=== PATIENT | female | born 1995 | race American Indian/Alaskan Native ===

== ENCOUNTER 2017-09-21 19:26 | Emergency (ER) | payer SELFPAY ==
[2017-09-21 19:36] VITALS: TEMP 97.8; O2SAT 100
[2017-09-21] MEDS ORDERED: Sodium Chloride 0.9% 500 ML IV STA (20:10)
[2017-09-21 20:26] LABS: BASO # 0.02 K/mm3 (0.0-2.0); BASO % 0.3 % (0.0-3.0); EOS # 0.1 (0.0-0.7); EOS % 1.5 % (1.5-5.0); GRAN # 3.34 (1.4-6.5); GRAN % 43.1 % (50.0-68.0); HEMATOCRIT 35.7 % (36.0-48.0); LYMPH # 3.7 (1.2-3.4); LYMPH % 47.7 % (22.0-35.0); MEAN CELL VOLUME 84.8 fl (80.0-105.0); MEAN CORPUSCULAR HEMOGLOBIN 28.7 pg (25.0-35.0); MEAN CORPUSCULAR HGB CONC 33.9 g/dl (31.0-37.0); MEAN PLATELET VOLUME 9.1 fl (7.0-11.0); MONO # 0.6 (0.1-0.6); MONO % 7.4 % (1.0-6.0); RED CELL DISTRIBUTION WIDTH 12.9 % (11.5-14.5); WHITE BLOOD COUNT 7.8 10^3/ul (4.5-11.0)
[2017-09-21 20:28] LABS: URINE BILIRUBIN NEGATIVE (NEGATIVE); URINE BLOOD LARGE (NEGATIVE); URINE GLUCOSE (UA) NEGATIVE (NEGATIVE); URINE KETONE NEGATIVE (NEGATIVE); URINE LEUKOCYTE ESTERASE NEGATIVE Leu/uL (NEGATIVE); URINE PROTEIN 30 mg/dL (<30 mg/dL); URINE UROBILINOGEN 0.2 E.U./dL (<1 E.U./dL)
[2017-09-21 20:30] LABS: URINE APPEARANCE CLEAR (CLEAR); URINE COLOR YELLOW (YELLOW)
[2017-09-21 20:31] LABS: URINE BACTERIA TRACE (NEG); URINE RBC 20 - 25 /hpf (0-2); URINE WBC NEGATIVE /hpf (0-6)
[2017-09-21 20:34] LABS: ALB/GLOB RATIO 1.3 (1.1-1.8); ALKALINE PHOSPHATASE 95 U/L (38-126); ALT/SGPT 28 U/L (7-56); AST/SGOT 32 U/L (14-36); BILIRUBIN,TOTAL 0.3 mg/dL (0.2-1.3); BLOOD UREA NITROGEN 13 mg/dL (7-21); CALCIUM 9.3 mg/dL (8.4-10.5); CARBON DIOXIDE 27 mmol/L (21-33); CHLORIDE 106 mmol/L (98-107); GFR AFRICAN-AMERICAN > 60; GLUCOSE,RANDOM 102 mg/dL (70-110); POTASSIUM 3.9 mmol/L (3.6-5.0); SODIUM 140 mmol/L (132-148); TOTAL PROTEIN 7.5 g/dL (5.8-8.3)
--- NOTE | 2017-09-21 20:43 | ED PDOC ---
Arrival/HPI - General Chief Complaint: Female Genitourinary Time Seen by Provider: 09/21/17 19:31 Historian: Patient - History of Present Illness Narrative History of Present Illness (Text): 09/21/17 20:40 22 yo F presents to the ER reports 1 day history of vaginal bleeding, with crampy lower abdominal pain. Reports that she had a +HPT 6 days ago. Otherwise: (-) N/V, (-) fever, (-) urinary symptoms, (-) prior salpingitis, (-) prior ectopic . Has (-) care and (-) prior OB ultrasound. 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 Para 0 AB 1 LNMP Aug 23 Past Medical History - Provider Review Nursing Documentation Reviewed: Yes - Cardiac Hx Cardiac Disorders: No - Pulmonary Hx Respiratory Disorders: No - Neurological Hx Neurological Disorder: Yes Hx Migraine: Yes - HEENT Hx HEENT Disorder: No - Renal Hx Renal Disorder: No - Endocrine/Metabolic Hx Endocrine Disorders: No - Hematological/Oncological Hx Blood Disorders: No - Integumentary Hx Dermatological Disorder: No - Musculoskeletal/Rheumatological Hx Musculoskeletal Disorders: No - Gastrointestinal Hx Gastrointestinal Disorders: No - Genitourinary/Gynecological Hx Genitourinary Disorders: No - Psychiatric Hx Psychophysiologic Disorder: No Hx Substance Use: Yes (occasional marijuana) Family/Social History - Physician Review Nursing Documentation Reviewed: Yes Family/Social History: Unknown Family HX Smoking Status: Never Smoked Hx Alcohol Use: No Hx Substance Use: Yes (occasional marijuana) Allergies/Home Meds Allergies/Adverse Reactions: Allergies raspberry Allergy (Verified 09/21/17 19:32) RASH shellfish derived Allergy (Verified 09/21/17 19:32) SWELLING Home Medications: Home Meds Medication Instructions Recorded Confirmed No Known Home Med 09/21/17 09/21/17 Review of Systems - Review of Systems Constitutional: Normal. absent: Fatigue, Weight Change, Fevers Respiratory: Normal. absent: SOB, Cough, Sputum Cardiovascular: Normal. absent: Chest Pain, Palpitations, Edema Gastrointestinal: Normal, Abdominal Pain. absent: Constipation, Diarrhea, Vomiting Genitourinary Female: Normal, Vaginal Bleeding. absent: Dysuria, Frequency, Hematuria Musculoskeletal: Normal. absent: Arthralgias, Back Pain, Neck Pain Skin: Normal. absent: Rash, Pruritis, Skin Lesions Physical Exam - Physical Exam Narrative Physical Exam (Text): 09/21/17 20:42 GENERAL APPEARANCE: Patient is awake, alert, oriented x 3, in no acute distress. SKIN: Warm, dry; (-) cyanosis. EYES: (-) conjunctival pallor, (-) scleral icterus. ENMT: Mucous membranes moist. NECK: (-) tenderness, (-) stiffness, (-) lymphadenopathy. CHEST AND RESPIRATORY: (-) rales, (-) rhonchi, (-) wheezes; breath sounds equal bilaterally. HEART AND CARDIOVASCULAR: (-) irregularity; (-) murmur, (-) gallop. ABDOMEN AND GI: (-) distention. Bowel sounds active; (-) tenderness, (-) guarding, (-) rebound, (-) palpable masses, (-) CVA tenderness. EXTREMITIES: (-) deformity, (-) edema, (+) distal pulses. NEURO AND PSYCH: Mental status as above; (-) focal findings. Vital Signs Temp Pulse Resp BP Pulse Ox 09/21/17 21:26 70 18 124/76 100 09/21/17 19:35 97.8 F 84 18 161/91 H 100 Medical Decision Making ED Course and Treatment: 09/21/17 20:42 22 yo F presents to the ER reports 1 day history of vaginal bleeding, with crampy lower abdominal pain. Reports that she had a +HPT 6 days ago. Plan: -- Labs -- IV -- Urinalysis -- Reassess and disposition -- TV US Lab results reviewed : hgb 12, beta quant <2, type and screen B+. US results show no IUP. Diagnostic results discussed with the patient in great detail. On re-evaluation, patient is resting in bed comfortably in no acute distress. Reports no increased in vaginal bleeding or worsening abdominal pain. Dx of miscarriage d/w the patient. Based on history, exam and diagnostic results plan will be for outpatient follow up. Follow up with primary care physician in 1-2 days without fail. Return to the emergency room at any time for any new or worsening symptoms. Patient states she fully agrees with and understands discharge instructions. States that she agrees with the plan and disposition. Verbalized and repeated discharge instructions and plan. I have given the patient opportunity to ask any additional questions. - Lab Interpretations Lab Results: 09/21/17 19:50 09/21/17 19:50 Lab Results 09/21/17 20:40: Blood Type Confirm B POSITIVE 09/21/17 19:50: Blood Type B POSITIVE, Antibody Screen Negative, BBK History Checked No verified bt 09/21/17 19:50: Beta HCG, Quant < 2.39 09/21/17 19:50: Sodium 140, Potassium 3.9, Chloride 106, Carbon Dioxide 27, Anion Gap 11, BUN 13, Creatinine 0.8, Est GFR ( Amer) > 60, Est GFR (Non- Af Amer) > 60, Random Glucose 102, Calcium 9.3, Total Bilirubin 0.3, AST 32, ALT 28, Alkaline Phosphatase 95, Total Protein 7.5, Albumin 4.2, Globulin 3.3, Albumin/Globulin Ratio 1.3 09/21/17 19:50: Urine Color Yellow, Urine Appearance Clear, Urine pH 7.0, Ur Specific [place] 1.015, Urine Protein 30 H, Urine Glucose (UA) Negative, Urine Ketones Negative, Urine Blood Large H, Urine Nitrate Negative, Urine Bilirubin Negative, Urine Urobilinogen 0.2, Ur Leukocyte Esterase Negative, Urine RBC 20 - 25, Urine WBC Negative, Ur Epithelial Cells 1 - 3, Urine Bacteria Trace 09/21/17 19:50: WBC 7.8, RBC 4.21, Hgb 12.1, Hct 35.7 L, MCV 84.8, MCH 28.7, MCHC 33.9, RDW 12.9, Plt Count 275, MPV 9.1, Gran % 43.1 L, Lymph % (Auto) 47.7 H, [place] % (Auto) 7.4 H, Eos % (Auto) 1.5, Baso % (Auto) 0.3, Gran # 3.34, Lymph # 3.7 H, [place] # 0.6, Eos # 0.1, Baso # 0.02 - RAD Interpretation Narrative RAD Interpretations (Text): 09/21/17 22:22 TV US : FINDINGS: Gestation: No intrauterine gestational sac. Uterus/cervix: Retroverted uterus. Endometrium: 0.3 cm in thickness. Closed cervix. Ovaries: Normal ovaries. No adnexal masses. Free fluid: Small free fluid within pelvis. IMPRESSION: 1. No intrauterine gestation. DDX: Early IUP, missed , ectopic . 2. Incidental/non-acute findings are described above. Dictated By: Rene Davis MD Dictated Date/Time: 09/21/172216 Radiology Orders: 09/21/17 20:10 TRANSVAGINAL [US] Stat - Medication Orders Current Medication Orders: Discontinued Medications Sodium Chloride (Sodium Chloride 0.9%) 500 mls @ 1,000 mls/hr IV .Q30M STA Stop: 09/21/17 20:39 Last Admin: 09/21/17 20:17 Dose: 1,000 mls/hr eMAR Start Stop Document 09/21/17 20:17 YP (Rec: 09/21/17 20:17 [email or web address] [id number]) Intravenous Solution Start Date 09/21/17 Start Time 20:17 End Date 09/21/17 End time 20:47 Total Infusion Time 30 - PA / [employer]CE / Resident Statement / has reviewed & agrees with the documentation as recorded. Disposition/Present on Arrival - Present on Arrival Any Indicators Present on Arrival: No History of DVT/PE: No History of Uncontrolled Diabetes: No Urinary Catheter: No History of Decub. Ulcer: No History Surgical Site Infection Following: None - Disposition Have Diagnosis and Disposition been Completed?: Yes Diagnosis: Miscarriage Disposition: HOME/ ROUTINE Disposition Time: 22:22 Patient Plan: Discharge Patient Problems: Current Active Problems Problem Status Onset Miscarriage Acute Condition: STABLE Discharge Instructions (ExitCare): Spontaneous Miscarriage (ED) Print Language: FAROESE Additional Instructions: Thank you for letting us take care of you today. You were treated for miscarriage. The emergency medical care you received today was directed at your acute symptoms. Return to the Emergency Department if your symptoms worsen, do not improve, or if you have any other problems. 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 Bring any paperwork you were given at discharge with you along with any medications you are taking to your follow up visit. Our treatment cannot replace ongoing medical care by a primary care provider (PCP) outside of the emergency department. Thank you for allowing the [facility] team to be part of your care today. Referrals: [facility] [Outside] - Follow up with primary Forms: [employer] (Bhutanese), WORK NOTE
[2017-09-21 21:28] VITALS: PULSE 70
--- NOTE | 2017-09-21 22:17 | US ---
EXAM: US First Trimester, Transabdominal CLINICAL HISTORY: 22 years old, female; Pain; Pelvic pain; Additional info: +hpt, vag bleed, lower abd pain bhcg<2.39 TECHNIQUE: Real-time transabdominal obstetrical ultrasound of the maternal pelvis and a first trimester with image documentation. COMPARISON: No relevant prior studies available. FINDINGS: Gestation: No intrauterine gestational sac. Uterus/cervix: Retroverted uterus. Endometrium: 0.3 cm in thickness. Closed cervix. Ovaries: Normal ovaries. No adnexal masses. Free fluid: Small free fluid within pelvis. IMPRESSION: 1. No intrauterine gestation. DDX: Early IUP, missed , ectopic . 2. Incidental/non-acute findings are described above. EXAM: US , Transvaginal CLINICAL HISTORY: 22 years old, female; Pain; Pelvic pain; Additional info: +hpt, vag bleed, lower abd pain bhcg<2.39 TECHNIQUE: Real-time transvaginal obstetrical ultrasound of the maternal pelvis and a first trimester with image documentation. Transvaginal imaging was used for better evaluation of the fetus and adnexa. COMPARISON: No relevant prior studies available. FINDINGS: Gestation: No intrauterine gestational sac. Uterus/cervix: Retroverted uterus. Endometrium: 0.3 cm in thickness. Closed cervix. Ovaries: Normal ovaries. No adnexal masses. Free fluid: Small free fluid within pelvis.
[2017-09-21 22:45] VITALS: BP 150/93; RESP 20
== END 2017-09-21 22:45 | disposition home or self-care (01) ==
LOC: ED 19:26
DX: O03.9 Complete or unspecified spontaneous abortion without complication (principal)
CPT/HCPCS: 76830; 80053; 81001; 84702; 85025; 86850; 86900; 87086; 99284; J7040

== ENCOUNTER 2018-02-17 18:41 | Emergency (ER) | payer BC ==
[2018-02-17] MEDS ORDERED: Sodium Chloride 0.9% 1,000 ML IV STA (18:52)
[2018-02-17 18:57] VITALS: TEMP 97.9
[2018-02-17 19:31] LABS: BASO # 0.03 K/mm3 (0.0-2.0); BASO % 0.3 % (0.0-3.0); EOS # 0.2 (0.0-0.7); EOS % 2.1 % (1.5-5.0); GRAN # 5.51 (1.4-6.5); HEMOGLOBIN 11.6 g/dL (12.0-16.0); LYMPH # 2.7 (1.2-3.4); LYMPH % 28.7 % (22.0-35.0); MEAN CELL VOLUME 83.1 fl (80.0-105.0); MEAN CORPUSCULAR HEMOGLOBIN 29.3 pg (25.0-35.0); MEAN CORPUSCULAR HGB CONC 35.3 g/dl (31.0-37.0); MONO % 10.9 % (1.0-6.0); RBC 3.96 10^6/uL (3.5-6.1); RED CELL DISTRIBUTION WIDTH 13.2 % (11.5-14.5); WHITE BLOOD COUNT 9.5 10^3/ul (4.5-11.0)
[2018-02-17 19:45] LABS: INR 0.95 (0.93-1.08); PROTHROMBIN TIME 10.8 SECONDS (9.4-12.5)
--- NOTE | 2018-02-17 19:50 | ED PDOC ---
Arrival/HPI - General Chief Complaint: Female Genitourinary Time Seen by Provider: 02/17/18 18:48 Historian: Patient - History of Present Illness Narrative History of Present Illness (Text): 02/17/18 19:48 22yo female who present with complaint of vaginal bleeding that started this evening with mild crampy pelvic pain. Notes that her last miscarriage was September last year and she became in October. Describes bleeding as blood stain on a toilet tissue, when she wipes herself after urination. She states she saw her OB and have started . She denies fever, chills, nausea, vomiting, dizziness, chest pain, urinary symptoms. Past Medical History - Provider Review Nursing Documentation Reviewed: Yes - Cardiac Hx Cardiac Disorders: No - Pulmonary Hx Respiratory Disorders: No - Neurological Hx Neurological Disorder: Yes Hx Migraine: Yes - HEENT Hx HEENT Disorder: No - Renal Hx Renal Disorder: No - Endocrine/Metabolic Hx Endocrine Disorders: No - Hematological/Oncological Hx Blood Disorders: No - Integumentary Hx Dermatological Disorder: No - Musculoskeletal/Rheumatological Hx Musculoskeletal Disorders: No - Gastrointestinal Hx Gastrointestinal Disorders: No - Genitourinary/Gynecological Hx Genitourinary Disorders: No - Psychiatric Hx Psychophysiologic Disorder: No Hx Substance Use: Yes (occasional marijuana) Family/Social History - Physician Review Nursing Documentation Reviewed: Yes Family/Social History: Unknown Family HX Smoking Status: Never Smoked Hx Alcohol Use: No Hx Substance Use: Yes (occasional marijuana) Allergies/Home Meds Allergies/Adverse Reactions: Allergies raspberry Allergy (Verified 02/17/18 18:42) RASH shellfish derived Allergy (Verified 02/17/18 18:42) SWELLING Review of Systems - Physician Review All systems were reviewed & negative as marked: Yes - Review of Systems Constitutional: Normal Eyes: Normal ENT: Normal Respiratory: Normal Cardiovascular: Normal Gastrointestinal: Abdominal Pain. absent: Constipation, Diarrhea, Nausea, Vomiting, Hematochezia, Hematemesis Genitourinary Female: Vaginal Bleeding. absent: Dysuria, Frequency, Hematuria Musculoskeletal: Normal Skin: Normal Neurological: Normal Endocrine: Normal Hemo/Lymphatic: Normal Psychiatric: Normal Physical Exam Vital Signs Reviewed: Yes Vital Signs Temp Pulse Resp BP Pulse Ox 02/17/18 18:42 97.9 F 122 H 20 153/105 H 100 Temperature: Afebrile Blood Pressure: Hypertensive Pulse: Tachycardic Respiratory Rate: Normal Appearance: Positive for: Well-Appearing, Non-Toxic, Comfortable Pain Distress: None Mental Status: Positive for: Alert and Oriented X 3 - Systems Exam Head: Present: Atraumatic, Normocephalic Pupils: Present: PERRL Extroacular Muscles: Present: EOMI Conjunctiva: Present: Normal Mouth: Present: Moist Mucous Membranes Neck: Present: Normal Range of Motion Respiratory/Chest: Present: Clear to Auscultation, Good Air Exchange. No: Respiratory Distress, Accessory Muscle Use Cardiovascular: Present: Regular Rate and Rhythm, Normal S1, S2. No: Murmurs Abdomen: No: Tenderness, Distention, Peritoneal Signs Back: Present: Normal Inspection Upper Extremity: Present: Normal Inspection. No: Cyanosis, Edema Lower Extremity: Present: Normal Inspection. No: Edema Neurological: Present: GCS=15, CN II-XII Intact, Speech Normal Skin: Present: Warm, Dry, Normal Color. No: Rashes Psychiatric: Present: Alert, Oriented x 3, Normal Insight, Normal Concentration Medical Decision Making ED Course and Treatment: 02/17/18 21:54 PT in ED for stated history. she notes that spotting resolved wnroute to the ED[place] [address].00. She have UTI and was treated with macrobid. age Us IMPRESSION: Single live intrauterine , ultrasound age is 18 weeks and 0 days. Breech presentation. heart rate is 155 beats per minute. Referred to her OB. - Lab Interpretations Lab Results: 02/17/18 19:05 02/17/18 19:05 Lab Results 02/17/18 21:15: Urine Color Straw, Urine Appearance Clear, Urine pH 6.0, Ur Specific [place] <= 1.005, Urine Protein Negative, Urine Glucose (UA) Negative, Urine Ketones Negative, Urine Blood Trace-lysed H, Urine Nitrate Negative, Urine Bilirubin Negative, Urine Urobilinogen 0.2, Ur Leukocyte Esterase Small H , Urine RBC 0 - 2, Urine WBC 2 - 5, Ur Epithelial Cells 0 - 2, Urine Bacteria Rare, Urine HCG, Qual Positive 02/17/18 19:05: Blood Type B POSITIVE, Antibody Screen Negative, BBK History Checked Patient has bt 02/17/18 19:05: Beta HCG, Quant 42498.00 H 02/17/18 19:05: Sodium 138, Potassium 4.2, Chloride 104, Carbon Dioxide 24, Anion Gap 14, BUN 5 L, Creatinine 0.7, Est GFR ( Amer) > 60, Est GFR (Non -Af Amer) > 60, Random Glucose 89, Calcium 10.3, Total Bilirubin < 0.1 L, AST 26 , ALT 21, Alkaline Phosphatase 74, Total Protein 7.5, Albumin 4.1, Globulin 3.4 , Albumin/Globulin Ratio 1.2 02/17/18 19:05: PT 10.8, INR 0.95, APTT 30.0 02/17/18 19:05: WBC 9.5 D, RBC 3.96, Hgb 11.6 L, Hct 32.9 L, MCV 83.1, MCH 29.3 , MCHC 35.3, RDW 13.2, Plt Count 284, MPV 9.0, Gran % 58.0, Lymph % (Auto) 28.7 , [place] % (Auto) 10.9 H, Eos % (Auto) 2.1, Baso % (Auto) 0.3, Gran # 5.51, Lymph # (Auto) 2.7, [place] # (Auto) 1.0 H, Eos # (Auto) 0.2, Baso # (Auto) 0.03 - RAD Interpretation Radiology Orders: 02/17/18 18:51 AGE [US] Stat - Medication Orders Current Medication Orders: Nitrofurantoin Macrocrystals (Macrobid) 100 mg PO ONCE STA PRN Reason: Protocol Stop: 02/17/18 21:54 Discontinued Medications Sodium Chloride (Sodium Chloride 0.9%) 1,000 mls @ 999 mls/hr IV .Q1H1M STA Stop: 02/17/18 19:52 Last Admin: 02/17/18 20:43 Dose: 999 mls/hr eMAR Start Stop Document 02/17/18 20:43 [email or web address] (Rec: 02/17/18 20:44 [id number]) Intravenous Solution Start Date 02/17/18 Start Time 20:44 End Date 02/17/18 Disposition/Present on Arrival - Present on Arrival Any Indicators Present on Arrival: No History of DVT/PE: No History of Uncontrolled Diabetes: No Urinary Catheter: No History of Decub. Ulcer: No History Surgical Site Infection Following: None - Disposition Have Diagnosis and Disposition been Completed?: Yes Diagnosis: UTI (urinary tract infection) during Disposition: HOME/ ROUTINE Disposition Time: 21:55 Patient Plan: Discharge Condition: STABLE Discharge Instructions (ExitCare): Urinary Tract Infection, Adult (DC) Additional Instructions: Follow up with your OB Return to ED for any new symptoms Prescriptions: Nitrofurantoin Macrocrystals [Macrobid] 100 mg PO BID #14 cap Referrals: PCP,NO [Primary Care Provider] - Follow up with primary Forms: [employer] (Algerian)
[2018-02-17 19:54] LABS: ALB/GLOB RATIO 1.2 (1.1-1.8); ALBUMIN 4.1 g/dL (3.0-4.8); ALT/SGPT 21 U/L (7-56); AST/SGOT 26 U/L (14-36); BLOOD UREA NITROGEN 5 mg/dL (7-21); CALCIUM 10.3 mg/dL (8.4-10.5); GFR AFRICAN-AMERICAN > 60; GFR NON-AFRICAN AMERICAN > 60
[2018-02-17 21:29] LABS: URINE BILIRUBIN NEGATIVE (NEGATIVE); URINE BLOOD TRACE-LYSED (NEGATIVE); URINE GLUCOSE (UA) NEGATIVE (NEGATIVE); URINE LEUKOCYTE ESTERASE SMALL Leu/uL (NEGATIVE); URINE PROTEIN NEGATIVE mg/dL (<30 mg/dL); URINE UROBILINOGEN 0.2 E.U./dL (<1 E.U./dL)
[2018-02-17 21:30] LABS: URINE APPEARANCE CLEAR (CLEAR); URINE COLOR STRAW (YELLOW)
[2018-02-17 21:31] LABS: HCG,QUALITATIVE URINE POSITIVE (NEGATIVE)
[2018-02-17 21:38] LABS: URINE EPITHELIAL CELLS 0 - 2 /hpf (0-5); URINE RBC 0 - 2 /hpf (0-2)
[2018-02-17 21:39] LABS: URINE BACTERIA RARE (NEG)
[2018-02-17 22:06] VITALS: BP 128/79; PULSE 82; RESP 18; O2SAT 99
--- NOTE | 2018-02-18 10:01 | US ---
PROCEDURE: OB Pelvic Ultrasound HISTORY: /bleeding COMPARISON: None available. FINDINGS: UTERUS: Single Live intrauterine fetus in breech presentation. BPD: 39.4 mm corresponding to 18 weeks and 0 days of gestational age. HC: 15.0 mm corresponding to 18 weeks and 0 days of gestational age. AC: 123.3 mm corresponding to 18 weeks and 0 days of gestational age. FL: 26.3 mm corresponding to 18 weeks and 0 days of gestational age. age (Ultrasound estimated): 18 weeks and 0 days Date of delivery (Ultrasound estimated) : 07/22/2018 Heart rate: 154 bpm. Marj-gestational hemorrhage: None. Placenta is fundal and posterior. Amniotic fluid index is 15.1. CERVIX: Long and closed. No cervical abnormality seen. RIGHT OVARY: Not visualized. LEFT OVARY: Not visualized. FREE FLUID: None. OTHER FINDINGS: None. IMPRESSION: Single live intrauterine fetus in breech presentation with mean gestational age of 8 weeks and 0 days. Placenta is fundal and posterior. Amniotic fluid is adequate. Please note this is a limited OB examination performed on an emergent basis. Dedicated anatomic survey is recommended. A preliminary report was provided by [facility].
== END 2018-02-17 22:07 | disposition home or self-care (01) ==
LOC: ED 18:41
DX: O23.41 Unspecified infection of urinary tract in pregnancy, first trimester (principal); Z3A.08 8 weeks gestation of pregnancy
CPT/HCPCS: 76815; 80053; 81001; 84702; 84703; 85025; 85610; 85730; 86850; 86900; 87086; 99283; J7040

== ENCOUNTER 2018-10-18 00:05 | Emergency (ER) | payer BC ==
--- NOTE | 2018-10-18 00:29 | ED PDOC ---
Arrival/HPI - General Time Seen by Provider: 10/18/18 00:21 Historian: Patient - History of Present Illness Narrative History of Present Illness (Text): 10/18/18 00:28 23 year old female with no significant past medical history, presents to the emergency department complaining of intermittent left-side chest pain that radiates to the left arm that began a few days ago. Patient describes the pain as a dull sensation. Patient states she has a family history heart attacks with similar symptoms and decide to come to the ER for evaluation. The patient denies any trauma, fever, chills, chest pain, shortness of breath, abdominal pain, nausea, vomiting, diarrhea, urinary symptoms, back pain, neck pain, headache, dizziness, or any other complaints. PMD: None Time/Duration: Other (few days) Symptom Onset: Gradual Symptom Course: Intermittent Quality: Dullness Activities at Onset: Light Context: Home Past Medical History - Provider Review Nursing Documentation Reviewed: Yes - Cardiac Hx Cardiac Disorders: No - Pulmonary Hx Respiratory Disorders: No - Neurological Hx Neurological Disorder: Yes Hx Migraine: Yes - HEENT Hx HEENT Disorder: No - Renal Hx Renal Disorder: No - Endocrine/Metabolic Hx Endocrine Disorders: No - Hematological/Oncological Hx Blood Disorders: No - Integumentary Hx Dermatological Disorder: No - Musculoskeletal/Rheumatological Hx Musculoskeletal Disorders: No - Gastrointestinal Hx Gastrointestinal Disorders: No - Genitourinary/Gynecological Hx Genitourinary Disorders: No - Psychiatric Hx Psychophysiologic Disorder: No Hx Substance Use: Yes (occasional marijuana) Family/Social History - Physician Review Nursing Documentation Reviewed: Yes Family/Social History: CAD/[place] (Mother) Smoking Status: Never Smoked Hx Alcohol Use: No Hx Substance Use: Yes (occasional marijuana) Allergies/Home Meds Allergies/Adverse Reactions: Allergies raspberry Allergy (Verified 10/18/18 00:16) RASH shellfish derived Allergy (Verified 10/18/18 00:16) SWELLING Home Medications: Home Meds Medication Instructions Recorded Confirmed RX: No Known Home Med 10/18/18 10/18/18 Review of Systems - Physician Review All systems were reviewed & negative as marked: Yes - Review of Systems Constitutional: absent: Fevers, Other (Chills) Respiratory: absent: SOB Cardiovascular: Chest Pain (radiates to left arm) Gastrointestinal: absent: Abdominal Pain, Diarrhea, Nausea, Vomiting Genitourinary Female: absent: Dysuria, Frequency, Hematuria Musculoskeletal: absent: Back Pain, Neck Pain Neurological: absent: Headache, Dizziness Physical Exam Vital Signs Reviewed: Yes Appearance: Positive for: Well-Appearing, Non-Toxic, Comfortable Pain Distress: None Mental Status: Positive for: Alert and Oriented X 3 - Systems Exam Head: Present: Atraumatic, Normocephalic Pupils: Present: PERRL Extroacular Muscles: Present: EOMI Conjunctiva: Present: Normal Mouth: Present: Moist Mucous Membranes Neck: Present: Normal Range of Motion Respiratory/Chest: Present: Clear to Auscultation, Good Air Exchange. No: Respiratory Distress, Accessory Muscle Use Cardiovascular: Present: Regular Rate and Rhythm, Normal S1, S2. No: Murmurs Abdomen: No: Tenderness, Distention, Peritoneal Signs Back: Present: Normal Inspection Upper Extremity: Present: Normal Inspection. No: Cyanosis, Edema Lower Extremity: Present: Normal Inspection. No: Edema Neurological: Present: GCS=15, CN II-XII Intact, Speech Normal Skin: Present: Warm, Dry, Normal Color. No: Rashes Psychiatric: Present: Alert, Oriented x 3, Normal Insight, Normal Concentration Medical Decision Making ED Course and Treatment: 10/18/18 00:28 Impression: 23 year old female presents complaining of left-sided chest pain that radiates to the left arm for that past few days. Plan: -- EKG -- Labs -- CXR -- HCG Qualitative Urine -- Urinalysis -- Reassess and disposition Progress Notes: 10/18/18 00:33 EKG shows NSR at [address]/T wave changes. Interpreted by me 10/18/18 02:06 CXR Impression: As read by me, negative 10/18/18 03:07 On reevaluation the patient feels better and is in no acute distress. I have discussed the results and plan with the patient, who expresses understanding. Patient given the opportunity to ask question, all questions were answered and there is agreement with the plan to discharge the patient home. Patient is stable for discharge. Patient was instructed to follow up with physician/clinic in 1-2 days or return if symptoms persist/worsen or new concerning symptoms arise. 10/18/18 05:16 atypical symptoms heart score low. cxr neg. perc neg. in nad. stable for dc. - Lab Interpretations I have reviewed the lab results: Yes - RAD Interpretation Child And Youth Program Assistant: ED Physician - EKG Interpretation Interpreted by ED Physician: Yes Type: 12 lead EKG - Scribe Statement The provider has reviewed the documentation as recorded by the Roslyn Real Provider Scribe Attestation: All medical record entries made by the Roslyn were at my direction and personally dictated by me. I have reviewed the chart and agree that the record accurately reflects my personal performance of the history, physical exam, medical decision making, and the department course for this patient. I have also personally directed, reviewed, and agree with the discharge instructions and disposition. Disposition/Present on Arrival - Present on Arrival Any Indicators Present on Arrival: No History of DVT/PE: No History of Uncontrolled Diabetes: No Urinary Catheter: No History Surgical Site Infection Following: None - Disposition Have Diagnosis and Disposition been Completed?: Yes Diagnosis: Chest pain Disposition: HOME/ ROUTINE Disposition Time: 03:00 Patient Problems: Current Active Problems Problem Status Onset Chest pain Acute Condition: STABLE Discharge Instructions (ExitCare): Chest Pain, Chest Pain (ED) Additional Instructions: return to er with worsening symptoms or concerns. Referrals: Elias Geiger MD [Staff Provider] - Follow up with primary Forms: [employer] (Paraguayan)
[2018-10-18 01:20] LABS: BASO # 0.02 K/mm3 (0.0-2.0); BASO % 0.3 % (0.0-3.0); EOS # 0.2 (0.0-0.7); EOS % 2.7 % (1.5-5.0); GRAN # 3.62 (1.4-6.5); HEMOGLOBIN 11.2 g/dL (12.0-16.0); LYMPH # 2.6 (1.2-3.4); LYMPH % 37.5 % (22.0-35.0); MEAN CELL VOLUME 83.5 fl (80.0-105.0); MEAN CORPUSCULAR HEMOGLOBIN 27.6 pg (25.0-35.0); MEAN PLATELET VOLUME 9.1 fl (7.0-11.0); MONO # 0.5 (0.1-0.6); MONO % 7.5 % (1.0-6.0); RBC 4.06 10^6/uL (3.5-6.1); RED CELL DISTRIBUTION WIDTH 12.7 % (11.5-14.5)
[2018-10-18 01:22] LABS: ALB/GLOB RATIO 1.2 (1.1-1.8); ALBUMIN 4.1 g/dL (3.0-4.8); ALT/SGPT 39 U/L (7-56); AST/SGOT 35 U/L (14-36); BLOOD UREA NITROGEN 15 mg/dL (7-21); CALCIUM 9.5 mg/dL (8.4-10.5); GFR NON-AFRICAN AMERICAN > 60
[2018-10-18 01:25] LABS: PARTIAL THROMBOPLASTIN TIME 32.5 Seconds (25.1-36.5); PROTHROMBIN TIME 11.5 SECONDS (9.4-12.5)
[2018-10-18 01:32] VITALS: BMI 34.9
[2018-10-18 01:34] LABS: TROPONIN I < 0.01 ng/mL
[2018-10-18 02:28] LABS: URINE BILIRUBIN NEGATIVE (NEGATIVE); URINE BLOOD TRACE-INTACT (NEGATIVE); URINE GLUCOSE (UA) NEGATIVE (NEGATIVE); URINE LEUKOCYTE ESTERASE NEGATIVE Leu/uL (NEGATIVE); URINE PROTEIN NEGATIVE mg/dL (<30 mg/dL); URINE UROBILINOGEN 0.2 E.U./dL (<1 E.U./dL)
[2018-10-18 02:35] LABS: HCG,QUALITATIVE URINE NEGATIVE (NEGATIVE); URINE APPEARANCE CLEAR (CLEAR); URINE COLOR LIGHT YELLOW (YELLOW)
[2018-10-18 03:00] LABS: URINE BACTERIA FEW (NEG); URINE RBC 0 - 2 /hpf (0-2); URINE WBC 0 - 2 /hpf (0-6)
[2018-10-18 03:04] VITALS: BP 121/63; RESP 18; TEMP 98.1; O2SAT 100
[2018-10-18 03:07] VITALS: PULSE 71
--- NOTE | 2018-10-18 08:05 | RAD ---
Date of service: 10/18/2018 HISTORY: cp COMPARISON: No prior. FINDINGS: LUNGS: No active pulmonary disease. PLEURA: No significant pleural effusion identified, no pneumothorax apparent. CARDIOVASCULAR: No aortic atherosclerotic calcification present. Normal cardiac size. No pulmonary vascular congestion. OSSEOUS STRUCTURES: No significant abnormalities. VISUALIZED UPPER ABDOMEN: Normal. OTHER FINDINGS: None. IMPRESSION: No active disease.
--- NOTE | 2018-10-18 09:53 | CARD ---
APPROVED REPORT Date of service: 10/18/2018 EKG Measurement Heart [id number] <Conclusion> Normal sinus rhythm with sinus arrhythmia Normal ECG
== END 2018-10-18 03:14 | disposition home or self-care (01) ==
LOC: ED 00:05
DX: R07.9 Chest pain, unspecified (principal); Z82.49 Family history of ischemic heart disease and other diseases of the circulatory system